=== PATIENT | male | born 1995 | race Caucasian/White ===

== ENCOUNTER 2022-01-16 16:00 | Emergency (ER) | payer MEDICAID, SELFPAY ==
[2022-01-16 16:13] VITALS: BP 147/88; PULSE 84; RESP 16; TEMP 36.9; O2SAT 100; BMI 23.7
--- NOTE | 2022-01-16 16:16 | ED.C_ITS ---
HPI - Psych General: Chief Complaint: Psychiatric Symptoms Stated Complaint: AUDITORY HALLUCINATIONS Time Seen by Provider: 01/16/22 16:02 History of Present Illness: 26-year-old male presents emergency room complaining of auditory hallucinations for the last several months. He says he hears voices are talking about spiritual things and he feels like they are following him. He has not had any health cellulitis suicidal ideation. He never previously been hospitalized he does not see a psychiatrist nor is he on any medications at this time. Onset (ago): month(s) (2) Duration: intermittent and changing over time Relieving factors: none Exacerbating factors: none Associated psychiatric symptoms: none and auditory hallucinations Associated symptoms: Reports auditory hallucinations; Deny visual hallucinations, delusions, depression, homicidal ideation, suicidal ideation or racing thoughts Treatments prior to arrival: none Review of Systems Const: Denies: fever(s), chills, body aches, change in appetite, fatigue or malaise ENMT: Denies: throat pain, ear or mastoid pain, nasal discharge or nasal congestion Card: Denies: chest pain, palpitations, irregular heart rhythm, edema, dyspnea on exertion or orthopnea Resp: Denies: dyspnea, productive cough or non-productive cough GI: Denies: abdominal pain, nausea, vomiting, hematemesis, coffee ground emesis, diarrhea, constipation, bloating, hematochezia or melena : Denies: flank pain, dysuria, urinary frequency or urinary urgency Skin/Breast: Denies: rash or pruritus Psych: Reports: auditory hallucinations; Denies: depression, visual hallucinations, suicidal ideation or homicidal ideation [facility] ED PFSH: Medical History No pertinent past medical history Surgical History No pertinent past surgical history Social History Smoking and tobacco status: never smoked Alcohol intake: never Physical Exam Const: GENERAL APPEARANCE: cooperative and comfortable ORIENTATION/CONSCIOUSNESS: Yes awake, Yes oriented to person, Yes oriented to place and Yes oriented to time HENMT: COMMON NORMALS: normocephalic and atraumatic HEAD & SCALP: normocephalic and atraumatic Resp: COMMON NORMALS: normal respiratory effort, No retractions, No use of accessory muscles and clear to auscultation bilaterally AUSCULTATION: clear to auscultation bilaterally Cardio: COMMON NORMALS: regular rate, regular rhythm and No murmurs present (Cardio) RATE: regular rate RHYTHM: regular rhythm GI: COMMON NORMALS: Soft to palpation and No hepatosplenomegaly present AUSCULTATION: Yes normoactive bowel sounds PALPATION: Yes Soft to palpation, No Tenderness to palpation present (GI), No Guarding due to palpation present (GI) and Yes No hepatosplenomegaly present Extremity: COMMON NORMALS: normal to inspection, capillary refill normal, no clubbing, cyanosis or edema, no calf tenderness and no pedal edema Neuro: SENSORIUM/ORIENTATION: Yes oriented to person, Yes oriented to place and Yes oriented to time Psych: THOUGHT CONTENT: No delusions Skin: COMMON NORMALS: no rashes or lesions noted GENERAL SKIN EXAM: no rashes or lesions noted Course Vital Signs: Vital signs: Vital Signs Temperature 98.5 F 01/16/22 16:13 Pulse Rate 84 01/16/22 16:13 Respiratory Rate 16 01/16/22 16:13 Blood Pressure 147/88 01/16/22 16:13 Pulse Oximetry 100 01/16/22 16:13 Oxygen Delivery Me thod 01/16/22 16:13 MDM - Psych Medical Decision Making Patient having auditory hallucinations but there is no suicidal or homicidal ideation at the time. He states has been going on for 2 months he is not currently having at this time. We will start him on Risperdal and have him follow-up with [facility] Medical Records I reviewed the patient's medical records. Lab Data I reviewed the patient's lab results. : 01/16/22 16:15 01/16/22 16:15 Laboratory Results WBC 11.1 10^3/uL (4.0-10.0) H 01/16/22 16:15 RBC 4.37 10^6/uL (4.1-5.3) 01/16/22 16:15 Hgb 13.3 g/dL (11.7-16.6) 01/16/22 16:15 Hct 40.4 % (42.0-52.0) L 01/16/22 16:15 MCV 92.4 fl (80-94) 01/16/22 16:15 MCH 30.4 pg (28.0-34.0) 01/16/22 16:15 MCHC 32.9 g/dL (30.0-36.0) 01/16/22 16:15 RDW 12.4 % (12.1-15.1) 01/16/22 16:15 Plt Count 260 10^3/cmm (130-400) 01/16/22 16:15 MPV 10.0 fL (7.4-10.4) 01/16/22 16:15 Neut % (Auto) 71.9 % 01/16/22 16:15 Lymph % (Auto) 15.2 % 01/16/22 16:15 [place] % (Auto) 9.0 % 01/16/22 16:15 Eos % (Auto) 3.1 % 01/16/22 16:15 Baso % (Auto) 0.4 % 01/16/22 16:15 Neut # (Auto) 8.00 10^3/uL (1.8-7.7) H 01/16/22 16:15 Lymph # (Auto) 1.7 10^3/uL (0.8-4.8) 01/16/22 16:15 [place] # (Auto) 1.0 10^3/uL (0.2-0.9) H 01/16/22 16:15 Eos # (Auto) 0.4 10^3/uL (0.0-0.8) 01/16/22 16:15 Baso # (Auto) 0.0 10^3/uL (0.0-0.1) 01/16/22 16:15 Nucleated RBC % (auto) 0 % 01/16/22 16:15 Nucleated RBCs # 0.0 /100WBC 01/16/22 16:15 Sodium 144 mmol/L (136-145) 01/16/22 16:15 Potassium 3.9 mmol/L (3.5-5.1) 01/16/22 16:15 Chloride 108 mmol/L (98-107) H 01/16/22 16:15 Carbon Dioxide 27 mmol/L (22-29) 01/16/22 16:15 Anion Gap 12.9 (5-19) 01/16/22 16:15 BUN 5 mg/dL (6-20) L 01/16/22 16:15 Creatinine 0.8 mg/dL (0.7-1.2) 01/16/22 16:15 GFR Calculation 118.8 mL/min (90-130) 01/16/22 16:15 Glucose 96 mg/dL (65-115) 01/16/22 16:15 Calculated Osmolality 295 mOsm/kg (285-295) 01/16/22 16:15 Calcium 9.6 mg/dL (8.5-10.5) 01/16/22 16:15 Total Bilirubin 0.5 mg/dL (0.15-1.2) 01/16/22 16:15 AST 11 U/L (0-40) 01/16/22 16:15 ALT 12 U/L (0-41) 01/16/22 16:15 Alkaline Phosphatase 55 U/L (40-130) 01/16/22 16:15 Total Protein 6.7 g/dL (6.6-8.7) 01/16/22 16:15 Albumin 4.5 g/dL (3.5-5.2) 01/16/22 16:15 Globulin 2.2 g/dL (1.3-4.6) 01/16/22 16:15 Salicylates < 0.3 mg/dL (3-10) L 01/16/22 16:15 Acetaminophen < 5.0 ug/mL (10-30) L 01/16/22 16:15 Discharge Plan Discharge Patient Disposition: Home Clinical Impression: Psychosis Condition: Stable Prescriptions: New Risperdal 1 mg tablet 1 mg PO DAILY Qty: 14 0RF Rx Instructions: Half tablet at at bedtime for 3 days. If symptoms have not improved increase to a full tablet at at bedtime Discharge Orders: Discharge ED (Routine); Ordered 01/16/22 Ordered By: Jesús Proctor Referrals: Rigoberto Eckert DO [Primary Care Provider] - Patient Instructions: Opioid Safety, Pain Management Coding Level of Care Code ED Development Administrator for [facility] Fwd Exam Comprehensive
[2022-01-16 16:29] LABS: Basophils % 0.4 %; Eosinophils # 0.4 10^3/uL (0.0-0.8); Eosinophils % 3.1 %; Hematocrit 40.4 % (42.0-52.0); Hemoglobin 13.3 g/dL (11.7-16.6); Lymphocytes # 1.7 10^3/uL (0.8-4.8); Lymphocytes % 15.2 %; Mean Corpuscular HGB Conc 32.9 g/dL (30.0-36.0); Mean Corpuscular Hemoglobin 30.4 pg (28.0-34.0); Mean Corpuscular Volume 92.4 fl (80-94); Neutrophils % 71.9 %; Nucleated Red Blood Cells % 0 %; Platelet Count 260 10^3/cmm (130-400); Red Blood Count 4.37 10^6/uL (4.1-5.3); Red Cell Distribution Width 12.4 % (12.1-15.1); White Blood Count 11.1 10^3/uL (4.0-10.0)
--- NOTE | 2022-01-16 16:35 | ECG_ITS ---
Test Date: 2022-01-16 Pat Name: Carlos Taylor Department: Room: Gender: Male Field Coordinator: : 1995 Requested By: Jesús Bartlett Order Number: [id number] Lucas MD: Isabella Allen M.D. Measurements Intervals [place] Rate: 82 P: 74 MO: 142 QRS: 72 QRSD: 99 T: 32 QT: 358 QTc: 419 Interpretive Statements SINUS RHYTHM No previous ECG available for comparison Electronically Signed On 01-17-2022 6:02:23 CDT by Isabella Allen M.D. [id number]
[2022-01-16 16:45] LABS: Alanine Aminotransferase 12 U/L (0-41); Albumin Level 4.5 g/dL (3.5-5.2); Alkaline Phosphatase 55 U/L (40-130); Anion Gap 12.9 (5-19); Aspartate Amino Transferase 11 U/L (0-40); Blood Urea Nitrogen 5 mg/dL (6-20); Calcium 9.6 mg/dL (8.5-10.5); Carbon Dioxide 27 mmol/L (22-29); Chloride 108 mmol/L (98-107); Creatinine Clr Calc Pharmacy 153.1047; Globulin 2.2 g/dL (1.3-4.6); Glomerular Filtration Rate 118.8 mL/min (90-130); Glucose 96 mg/dL (65-115); Osmolality Calculated 295 mOsm/kg (285-295); Potassium 3.9 mmol/L (3.5-5.1); Sodium 144 mmol/L (136-145); Total Bilirubin 0.5 mg/dL (0.15-1.2); Total Protein 6.7 g/dL (6.6-8.7)
[2022-01-16 16:47] LABS: Acetaminophen < 5.0 ug/mL (10-30); Salicylate < 0.3 mg/dL (3-10)
--- NOTE | 2022-01-26 10:54 | DCPLANNER ---
Addendum entered by Haritha Bernal 02/08/22 10:38: manager analytical received the following message from Karen at [facility] regarding follow up appointment: I tried calling him to have him go to [facility] to do a walk his PW and walk in assessment. The number in expanse is disconnected. Original Note: manager analytical had message to schedule a follow up appointment for patient with [facility]. manager analytical sent patients information to Karen at [facility] for review. Clinic will review patients referral and will call patient with appointment information.
== END 2022-01-16 17:36 | disposition home or self-care (01) ==
PROVIDERS: Emergency Provider Family Medicine; PCP Family Medicine
DX: F29 Unspecified psychosis not due to a substance or known physiological condition (principal)
CPT/HCPCS: 36415; 80053; 80307; 85025; 93005; 99284